=== PATIENT | female | born 1950 | race Caucasian/White ===

== ENCOUNTER → 2016-06-06 | Outpatient (CLI) | payer BC ==
--- NOTE | 2016-06-06 10:07 | DIAGNOSTIC IMAGING REPORT ---
CHEST 2 VIEWS ROUTINE HISTORY: R06.09 Dyspnea on [id number] COMPARISON: None. FINDINGS: Mild diffuse residual thickening which is likely chronic. No focal lung consolidations. No evidence for pulmonary edema. The heart is top normal in size. No pleural effusions. No pneumothorax. IMPRESSION: Mild interstitial thickening is likely chronic. No focal lung consolidations. Electronically signed by: David Killian M.D. 06/06/2016 10:06 AM Dictated Date/Time: 06/06/2016 10:04 AM
== END | disposition home or self-care (01) ==
LOC: C.RAD1850 09:23
PROVIDERS: ATTEND Internal Medicine Pulmonary Disease
DX: R06.09 Other forms of dyspnea (principal)

== ENCOUNTER → 2016-07-28 | Outpatient (CLI) | payer BC ==
--- NOTE | 2016-07-28 14:28 | MAMMOGRAPHY REPORT ---
BILATERAL DIGITAL SCREENING MAMMOGRAM WITH CAD: 07/28/2016 CLINICAL HISTORY: Routine screening examination. TECHNIQUE: Bilateral CC and MLO views were obtained. Current study was also evaluated with a Compu ter Aided Detection (CAD) system. COMPARISON: Comparison is made to exams dated: 07/20/2015 mammogram, 06/21/2013 mammogram, 07/18/2014 mammogram, 06/08/2012 mammogram, 06/09/2011 mammogram, and 06/06/2010 mammogram - [facility] nter. BREAST COMPOSITION: The tissue of both breasts is heterogeneously dense, which may obscure small ma sses. FINDINGS: There are a few scattered benign appearing calcifications in the breasts and mild vascula r calcification in the right breast. There is a bilobed circumscribed mass in the 1:00 middle one third of the left breast. When compari ng to all available prior mammograms, this has minimally increased in size comparing back to the exam at which time it measured 17 x 9 x 13 mm, and currently measures 17 x 11 x 17 mm. 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 No other suspicious mass, architectural distortion or cluster of microcalcifications is seen bilater ally. IMPRESSION: ACR BI-RADS CATEGORY 0: INCOMPLETE EVALUATION: NEED ADDITIONAL IMAGING EVALUATION A bilobed circumscribed mass in the 1:00 left breast has minimally increased in size comparing back to the 2009 mammogram, and it is therefore indeterminate. Definitive characterization with ultrasou nd is recommended. The patient will be called to schedule an appointment. Approximately 10% of breast cancers are not detected with mammography. A negative mammographic repor t should not delay biopsy if a clinically suggestive mass is present. Oneyda Guzman M.D. ay/:07/28/2016 13:47:05 Staple Shear Operator: Kitty BERGMAN(R)(M), [facility] letter sent: Addl Imaging 0 BI-RADS Code: ACR BI-RADS Category 0: Incomplete Evaluation: Need Additional Imaging Evaluation
== END | disposition home or self-care (01) ==
LOC: C.MAMM 11:11
PROVIDERS: ATTEND Nurse Practitioner Family
DX: Z12.31 Encounter for screening mammogram for malignant neoplasm of breast (principal); N63 Unspecified lump in breast

== ENCOUNTER → 2016-08-06 | Outpatient (CLI) | payer BC ==
--- NOTE | 2016-08-06 14:42 | MAMMOGRAPHY REPORT ---
ULTRASOUND OF LEFT BREAST: 08/06/2016 CLINICAL HISTORY: 66-year-old woman called back from screening mammography for a slowly enlarging bi lobed mass in the upper outer middle one third of the left breast. COMPARISON: Comparison is made to exams dated: 07/28/2016 mammogram, 07/20/2015 mammogram, 07/18/2014 mammogram, 06/21/2013 mammogram, 06/08/2012 mammogram, and 06/09/2011 mammogram - [facility] enter. FINDINGS: Real-time high-resolution sonographic evaluation was performed in the upper outer quadran t of the left breast to evaluate for the slowly enlarging mammographic mass. In the 2:00 axis, 1 cm from the nipple, there is a bilobed cyst with single thin internal nonvascular septation versus 2 a butting cysts, measuring 11.1 x 5.7 x 15.5 mm. This correlates well in size, shape and location as the mammographic mass and is benign. IMPRESSION: ACR BI-RADS CATEGORY 2: BENIGN The slowly enlarging bilobed mass in the upper outer left breast seen mammographically correlates wi th a benign cyst versus 2 abutting simple cysts on ultrasound. There is no sonographic evidence of malignancy. Recommend bilateral screening mammography in one year. These results and recommendatio ns were discussed with the patient at the time of the exam. Oneyda Guzman M.D. ay/:08/06/2016 09:39:30 Director Of Enterprise Architecture: Dr. Oneyda Guzman, [facility] letter sent: Normal 1/2 BI-RADS Code: ACR BI-RADS Category 2: Benign
== END | disposition home or self-care (01) ==
LOC: C.MAMM 09:10
PROVIDERS: ATTEND Nurse Practitioner Family
DX: N63 Unspecified lump in breast (principal)

== ENCOUNTER → 2017-04-14 | Outpatient (CLI) | payer BC | END | disposition home or self-care (01) | LOC: C.MAMM 15:44 | PROVIDERS: ATTEND Nurse Practitioner Family | DX: M81.0 Age-related osteoporosis without current pathological fracture (principal); M85.89 Other specified disorders of bone density and structure, multiple sites ==

== ENCOUNTER → 2017-07-29 | Outpatient (CLI) | payer BC ==
--- NOTE | 2017-07-30 07:50 | MAMMOGRAPHY REPORT ---
BILATERAL DIGITAL SCREENING MAMMOGRAM TOMOSYNTHESIS WITH CAD: 07/29/2017 CLINICAL HISTORY: Routine screening. Patient has no complaints. TECHNIQUE: Breast tomosynthesis in addition to standard 2D mammography was performed. Current study was also evaluated with a Computer Aided Detection (CAD) system. COMPARISON: Comparison is made to exams dated: 08/06/2016 ultrasound, 07/28/2016 mammogram, 07/20/2015 m ammogram, 07/18/2014 mammogram, 06/21/2013 mammogram, and 06/08/2012 mammogram - [facility] nter. BREAST COMPOSITION: The tissue of both breasts is heterogeneously dense, which may obscure small mas ses. FINDINGS: No suspicious masses, calcifications, or areas of architectural distortion are noted in ei ther breast. There has been no significant interval change compared to prior exams. Circumscribed be nign-appearing mass in the left upper outer quadrant is again noted and was shown to represent a bhavin gn cyst on the prior 2016 ultrasound exam. IMPRESSION: ACR BI-RADS CATEGORY 2: BENIGN There is no mammographic evidence of malignancy. A 1 year screening mammogram is recommended. The pa tient will receive written notification of the results. Approximately 10% of breast cancers are not detected with mammography. A negative mammographic report should not delay biopsy if a clinically suggestive mass is present. Annette Galloway M.D. /:07/29/2017 12:41:16 Food Service Team Member: Manda WARNER)(Doreen), [facility] letter sent: Normal 1/2 BI-RADS Code: ACR BI-RADS Category 2: Benign
== END | disposition home or self-care (01) ==
LOC: C.MAMM 11:07
PROVIDERS: ATTEND Nurse Practitioner Family
DX: Z12.31 Encounter for screening mammogram for malignant neoplasm of breast (principal)